=== PATIENT | male | born 1975 | race Caucasian/White ===

== ENCOUNTER 2019-04-25 21:35 | Emergency (ER) | payer BC, OTHER ==
[2019-04-25 21:41] VITALS: BP 121/78; PULSE 85; RESP 20; TEMP 97.7
--- NOTE | 2019-04-25 21:53 | ED ---
General Adult HPI - General Chief complaint: Skin/Abscess/Foreign Body Stated complaint: Rash Time Seen by Provider: 04/25/19 21:42 Source: patient Mode of arrival: ambulatory Limitations: no limitations - History of Present Illness Initial comments: 43-year-old male patient presents to the emergency department today for evaluation of rash. Patient states over the last 4 days he has been developing these spots on his arms and legs. Patient states that they are not itchy or painful. Denies any drainage. States that over the weekend he was out in the [place] riding a 4 fontaine. He denies any fever or chills. Denies any history of similar symptoms. He says in all there are probably 7 or 8 lesions over the entirety of his body. Patient denies any recent rash, shortness breath, chest pain, abdominal pain, nausea, vomiting, diarrhea, constipation, back pain, numbness, tingling, dizziness, weakness, hematuria, dysuria, urinary urgency, urinary frequency, headache, visual changes, or any other complaints. - Related Data Previous Rx's Medication Instructions Recorded Pramox-Calamine 1-8% Lotion 1 applic TOPICAL TID PRN #1 tube 03/29/16 [Caladryl] predniSONE 50 mg PO DAILY #5 tab 03/29/16 Allergies Allergy/AdvReac Type Severity Reaction Status Date / Time No Known Allergies Allergy Verified 04/25/19 21:41 Review of Systems ROS Statement: Those systems with pertinent positive or pertinent negative responses have been documented in the HPI. ROS Other: All systems not noted in ROS Statement are negative. Past Medical History Past Medical History: Hyperlipidemia, Hypertension History of Any Multi-Drug Resistant Organisms: None Reported Additional Past Surgical History / Comment(s): eye sx Past Psychological History: No Psychological Hx Reported Smoking Status: Current every day smoker Past Alcohol Use History: Rare Past Drug Use History: None Reported General Exam Limitations: no limitations General appearance: alert, in no apparent distress, other (This is a well- developed, well-nourished adult male patient in no acute distress. Vital signs upon presentation are temperature 97.7F, pulse 85, respirations 20, blood pressure 121/78, pulse ox 97% on room air.) Respiratory exam: Present: normal lung sounds bilaterally. Absent: respiratory distress, wheezes, rales, rhonchi, stridor Cardiovascular Exam: Present: regular rate, normal rhythm, normal heart sounds. Absent: systolic murmur, diastolic murmur, rubs, gallop, clicks Neurological exam: Present: alert, oriented X3, CN II-XII intact Psychiatric exam: Present: normal affect, normal mood Skin exam: Present: warm, dry, intact, normal color, rash (There are scattered, sparse papules noted over the arms and legs. No surrounding erythema or evidence of infection. Seems consistent with folliculitis.) Course Vital Signs 04/25/19 21:38 Temperature 97.7 F Pulse Rate 85 Respiratory 20 Rate Blood Pressure 121/78 O2 Sat by Pulse 97 Oximetry Medical Decision Making - Medical Decision Making 43-year-old male patient presented to the emergency department today for evaluation of rash. Physical examination did reveal 7 or 8 scattered lesions that appeared to be papular in nature. They seem to be consistent with folliculitis. They're not itchy or more painful. No evidence of secondary infection. Patient was discharged follow up with his primary care physician for recheck in 1-2 days. Return parameters were discussed in detail. He verbalizes understanding and agrees with this plan. Disposition Clinical Impression: Folliculitis Disposition: HOME SELF-CARE Condition: Good Instructions (If sedation given, give patient instructions): Folliculitis (ED) Additional Instructions: Keep areas clean. Apply bacitracin or other antibiotic ointment to the areas. Follow-up through primary care physician for recheck in 1-2 days. Return to the emergency department immediately for any new, worsening, or concerning symptoms Is patient prescribed a controlled substance at d/c from ED?: No Referrals: Talia Bonilla MD [REFERRING] - 1-2 days Time of Disposition: 21:52
== END 2019-04-25 22:00 | disposition home or self-care (01) ==
LOC: EC 21:35
DX: L73.9 Follicular disorder, unspecified (principal); F17.200 Nicotine dependence, unspecified, uncomplicated
CPT/HCPCS: 99282

== ENCOUNTER 2021-09-11 22:35 | Emergency (ER) | payer BC ==
[2021-09-11 22:44] VITALS: TEMP 98.5
[2021-09-11] MEDS ORDERED: AMOXIC-POT CLAV 875-125MG 1 EACH TAB PO STA (23:25)
[2021-09-11] MEDS ORDERED: HYDROcodone/APAP 7.5-325MG 1 EACH TAB PO ONE (23:25)
--- NOTE | 2021-09-12 00:23 | ED ---
ENT HPI - General Chief complaint: ENT Stated complaint: Dental pain Time Seen by Provider: 09/11/21 22:47 Source: patient Mode of arrival: ambulatory Limitations: no limitations - History of Present Illness Initial comments: This patient states that he is having increasing dental pain over tonight. The patient reports that yesterday she had a root canal performed to a left mandibular tooth. He states that he had been doing okay and then the pain started increasing tonight. He has taken Tylenol and ibuprofen without much relief. He has not noted any swelling. No fever or chills. No neck swelling or pain. No trouble with speech or swallowing. No dyspnea MD complaint: tooth pain -: hour(s) Location: tooth # Severity: severe Quality: aching Consistency: constant Improves with: none Worsens with: none Context-Epistaxis: recent surgery/procedure Associated Symptoms: toothache - Related Data Previous Rx's Medication Instructions Recorded Pramox-Calamine 1-8% Lotion 1 applic TOPICAL TID PRN #1 tube 03/29/16 [Caladryl] predniSONE 50 mg PO DAILY #5 tab 03/29/16 Amoxicillin/Potassium Clav 1 tab PO Q12HR 1 Days #14 tab 09/12/21 [Augmentin 875-125 Tablet] HYDROcodone/APAP 7.5-325MG [Stewart 1 tab PO Q6HR PRN 3 Days #12 tab 09/12/21 7.5-325] Allergies Allergy/AdvReac Type Severity Reaction Status Date / Time No Known Allergies Allergy Verified 04/25/19 21:41 Review of Systems ROS Statement: Those systems with pertinent positive or pertinent negative responses have been documented in the HPI. ROS Other: All systems not noted in ROS Statement are negative. Constitutional: Denies: fever, chills Eyes: Denies: eye pain, vision change ENT: Reports: dental pain. Denies: ear pain, throat pain, congestion Respiratory: Denies: cough, dyspnea Cardiovascular: Denies: chest pain, palpitations Neurological: Denies: headache Past Medical History Past Medical History: Diabetes Mellitus, Hyperlipidemia, Hypertension History of Any Multi-Drug Resistant Organisms: None Reported Past Surgical History: No Surgical Hx Reported Additional Past Surgical History / Comment(s): eye sx Past Psychological History: No Psychological Hx Reported Smoking Status: Never smoker Past Alcohol Use History: None Reported, Rare Past Drug Use History: Marijuana General Exam Limitations: no limitations General appearance: alert, in no apparent distress Head exam: Present: atraumatic, normocephalic Eye exam: Present: normal appearance, EOMI. Absent: scleral icterus, conjunctival injection, nystagmus ENT exam: Present: normal oropharynx, mucous membranes moist, other (The patient indicates tooth #19. There is a temporary filling which looks intact. There is no erythema. No gingival swelling. No evidence of any abscess or infection.) Neck exam: Present: normal inspection, full ROM. Absent: tenderness, meningismus, lymphadenopathy Course Vital Signs 09/11/21 09/12/21 22:43 00:45 Temperature 98.5 F Pulse Rate 92 74 Respiratory 20 18 Rate Blood Pressure 131/87 134/87 O2 Sat by Pulse 99 99 Oximetry Disposition Clinical Impression: Pain, dental Disposition: HOME SELF-CARE Condition: Good Prescriptions: Amoxicillin/Potassium Clav [Augmentin 875-125 Tablet] 1 tab PO Q12HR 1 Days #14 tab HYDROcodone/APAP 7.5-325MG [Stewart 7.5-325] 1 tab PO Q6HR PRN 3 Days #12 tab PRN Reason: Pain Is patient prescribed a controlled substance at d/c from ED?: Yes When asked, does pt state using other controlled substances?: No If prescribed controlled substance>3 days was MAPS reviewed?: Prescribed <3 Days If opioid is for acute pain is fill amount 7 days or less?: Yes If Rx opioid, was Start Talking consent form obtained?: Yes Referrals: Ej Orr MD [Primary Care Provider] - 1-2 days
[2021-09-12 00:51] VITALS: BP 134/87; PULSE 74; RESP 18
== END 2021-09-12 00:53 | disposition home or self-care (01) ==
LOC: EC 22:35
DX: K08.89 Other specified disorders of teeth and supporting structures (principal); E11.9 Type 2 diabetes mellitus without complications; I10 Essential (primary) hypertension; E78.5 Hyperlipidemia, unspecified; F12.90 Cannabis use, unspecified, uncomplicated; Z79.52 Long term (current) use of systemic steroids
CPT/HCPCS: 99282